=== PATIENT | male | born 1955 | race Two or more races ===

== ENCOUNTER 2020-10-25 00:11 | Emergency (ER) | payer OTHER ==
[~2020-10-25] VITALS: Ht 170.2 cm; Wt 70.8 kg
[2020-10-25 01:23] LABS: Basophils # (auto) 0 10 ^3/uL (0-0.2); Basophils % (auto) 0.7 % (0.0-2.0); Eosinophils # (auto) 0.2 10 ^3/uL (0-0.8); Eosinophils % (auto) 4.1 % (0.0-7.0); Hematocrit 40.9 % (41.0-53.0); Hemoglobin 14.2 g/dL (13.5-17.5); Lymphocytes # (auto) 2.3 10 ^3/uL (0.4-5.4); Lymphocytes % (auto) 41.2 % (10.0-50.0); Mean Corpuscular Hemoglobin 28.6 pg (28.0-32.0); Mean Corpuscular Hgb Conc. 34.6 g/dL (32.0-36.0); Mean Corpuscular Volume 82.7 fL (80.0-100.0); Monocytes # (auto) 0.5 10 ^3/uL (0-1.3); Monocytes % (auto) 9.5 % (0.0-12.0); Neutrophils # (auto) 2.5 10 ^3/uL (1.6-8.6); Neutrophils % (auto) 44.5 % (37.0-80.0); Nucleated Red Blood Cells % 0.5 %; Platelet Count (auto) 178 10^3/uL (140-450); Red Blood Cells 4.95 10^6/uL (4.5-5.90); Red Cell Distribution Width 12.8 % (11.8-14.3); White Blood Cell 5.6 10^3/uL (4.4-10.8)
[2020-10-25 01:40] LABS: Albumin 3.6 g/dL (3.4-5.0); Anion Gap 10 (5-15); BUN/Creatinine Ratio 19.1; Blood Urea Nitrogen 17 mg/dL (7-18); Calcium 8.2 mg/dL (8.5-10.1); Carbon Dioxide 24 mmol/L (21-32); Chloride 107 mmol/L (98-107); GFR African American 111 mL/min; GFR Non-African American 92 mL/min; Glucose 124 mg/dL (74-106); Sodium 141 mmol/L (136-145)
[2020-10-25 01:44] LABS: Alanine Aminotransferase 26 U/L (16-61); Alkaline Phosphatase 105 U/L (45-117); Aspartate Aminotransferase 20 U/L (15-37); Bilirubin, Total 0.4 mg/dL (0.2-1.0); Total Protein 7.4 g/dL (6.4-8.2)
[2020-10-25 01:49] LABS: Potassium 2.8 mmol/L (3.5-5.1)
[2020-10-25] MEDS ORDERED: POTASSIUM CHL 20 Meq TABLET PO ONE (03:00)
[2020-10-25] MEDS: POTASSIUM CHL 20MEQ/100ML 100 ML IV SCH ×2 (03:56→06:00)
[2020-10-25] MEDS ORDERED: MECLIZINE HCL 25 MG TAB PO ONE (04:00)
[2020-10-25 05:33] VITALS: BP 93/61
== END 2020-10-25 08:20 | disposition home or self-care (01) ==
LOC: ER 00:15
DX: R42 Dizziness and giddiness (principal); E87.6 Hypokalemia; F17.210 Nicotine dependence, cigarettes, uncomplicated; R51.9 Headache, unspecified
CPT/HCPCS: 36415; 71045; 80053; 84484; 85025; 93005; 96365; 96366; 99285; J3480; J7030; J8597

== ENCOUNTER 2021-05-13 23:07 | Emergency (ER) | payer OTHER ==
[~2021-05-13] VITALS: Ht 170.2 cm; Wt 70.3 kg
[2021-05-14 00:03] LABS: Basophils # (auto) 0.1 10 ^3/uL (0-0.2); Basophils % (auto) 0.6 % (0.0-2.0); Eosinophils # (auto) 0.2 10 ^3/uL (0-0.8); Hematocrit 42.4 % (41.0-53.0); Hemoglobin 14.5 g/dL (13.5-17.5); Lymphocytes # (auto) 2.5 10 ^3/uL (0.4-5.4); Lymphocytes % (auto) 27.7 % (10.0-50.0); Mean Corpuscular Hemoglobin 28.1 pg (28.0-32.0); Mean Corpuscular Hgb Conc. 34.3 g/dL (32.0-36.0); Mean Corpuscular Volume 81.9 fL (80.0-100.0); Monocytes # (auto) 0.8 10 ^3/uL (0-1.3); Neutrophils # (auto) 5.4 10 ^3/uL (1.6-8.6); Neutrophils % (auto) 60.7 % (37.0-80.0); Nucleated Red Blood Cells % 0.1 %; Red Blood Cells 5.17 10^6/uL (4.5-5.90); Red Cell Distribution Width 12.6 % (11.8-14.3)
[2021-05-14 00:25] LABS: Albumin 3.7 g/dL (3.4-5.0); BUN/Creatinine Ratio 18.1; Calcium 8.5 mg/dL (8.5-10.1); Potassium 3.3 mmol/L (3.5-5.1)
[2021-05-14 00:30] LABS: Bilirubin, Total 0.5 mg/dL (0.2-1.0); Total Protein 7.9 g/dL (6.4-8.2)
[2021-05-14] MEDS ORDERED: SODIUM CHLORIDE 0.9% 1,000 ML IV ONE (02:00)
[2021-05-14] MEDS ORDERED: MECLIZINE HCL 25 MG TAB PO ONE (02:00)
[2021-05-14] MEDS ORDERED: ONDANSETRON HCL 4 MG/2 ML VIAL IV ONE (02:45)
[2021-05-14 06:25] VITALS: BP 145/67
== END 2021-05-14 06:27 | disposition home or self-care (01) ==
LOC: ER 23:07
DX: R42 Dizziness and giddiness (principal); H92.03 Otalgia, bilateral
CPT/HCPCS: 36415; 70450; 71045; 80053; 84484; 85025; 93005; 96361; 96374; 99285; J2405; J7030; J8597

== ENCOUNTER 2022-04-15 10:05 | Emergency (ER) | payer MEDICARE, OTHER ==
[~2022-04-15] VITALS: Ht 165.1 cm; Wt 66.8 kg
[2022-04-15] MEDS ORDERED: SODIUM CHLORIDE 0.9% 500 ML IV ONE (10:15)
[2022-04-15 11:08] LABS: Albumin 3.6 g/dL (3.4-5.0); Calcium 7.7 mg/dL (8.5-10.1)
[2022-04-15 11:12] LABS: Basophils # (auto) 0 10 ^3/uL (0-0.2); Basophils % (auto) 0.8 % (0.0-2.0); Eosinophils # (auto) 0.1 10 ^3/uL (0-0.8); Eosinophils % (auto) 2.3 % (0.0-7.0); Hematocrit 38.5 % (41.0-53.0); Hemoglobin 13.3 g/dL (13.5-17.5); Lymphocytes # (auto) 0.7 10 ^3/uL (0.4-5.4); Lymphocytes % (auto) 12.1 % (10.0-50.0); Mean Corpuscular Hemoglobin 28.2 pg (28.0-32.0); Mean Corpuscular Hgb Conc. 34.6 g/dL (32.0-36.0); Mean Corpuscular Volume 81.5 fL (80.0-100.0); Monocytes # (auto) 0.5 10 ^3/uL (0-1.3); Monocytes % (auto) 8.4 % (0.0-12.0); Neutrophils # (auto) 4.5 10 ^3/uL (1.6-8.6); Neutrophils % (auto) 76.4 % (37.0-80.0); Nucleated Red Blood Cells % 0.1 %; Red Blood Cells 4.73 10^6/uL (4.5-5.90); Red Cell Distribution Width 13.1 % (11.8-14.3); White Blood Cell 5.9 10^3/uL (4.4-10.8)
[2022-04-15 11:13] LABS: BUN/Creatinine Ratio 17.6; Bilirubin, Total 0.5 mg/dL (0.2-1.0); Total Protein 6.5 g/dL (6.4-8.2)
[2022-04-15 11:29] LABS: Urine Bacteria NONE SEEN /hpf (None Seen); Urine Blood Negative /uL (Negative); Urine Specific Gravity 1.007 (1.001-1.035); Urine WBC <1 /hpf (0 - 3)
[2022-04-15 11:56] LABS: Alcohol, Urine < 3.0 mg/dL (0-10); Amphetamine Screen, Urine NEGATIVE (NEGATIVE); Barbiturate Scree,Urine NEGATIVE (NEGATIVE); Benzodiazephine Screen, Urine NEGATIVE (NEGATIVE); Cannabinoid Screen, Urine NEGATIVE (NEGATIVE); Cocaine Screen, Urine NEGATIVE (NEGATIVE); Opiate Scree,Urine NEGATIVE (NEGATIVE); Phencyclidine Screen, Urine NEGATIVE (NEGATIVE)
[2022-04-15 13:27] VITALS: BP 125/90
== END 2022-04-15 13:31 | disposition home or self-care (01) ==
LOC: ER 10:05 → EDBD 10:05 → ER 13:31
DX: R42 Dizziness and giddiness (principal); T50.905A Adverse effect of unspecified drugs, medicaments and biological substances, initial encounter; Y92.89 Other specified places as the place of occurrence of the external cause
CPT/HCPCS: 36415; 71045; 80053; 80307; 81001; 84484; 85025; 93005; 99285; J7030; 96360

== ENCOUNTER 2023-03-13 08:29 | Emergency (ER) | payer MEDICARE, MEDICAID ==
[~2023-03-13] VITALS: Ht 167.6 cm; Wt 66.2 kg
[2023-03-13 09:06] LABS: Urine Bacteria NONE SEEN /hpf (None Seen); Urine Blood Negative /uL (Negative); Urine Clarity Clear (Clear); Urine Color Yellow (Yellow); Urine Mucus FEW (None Seen); Urine Protein, UAD Negative (Negative); Urine Specific Gravity 1.018 (1.001-1.035); Urine Urobilinogen Normal (Negative); Urine WBC 1 /hpf (0 - 3)
[2023-03-13 09:09] VITALS: BP 156/103; RESP 20; TEMP 97.8; O2SAT 98
[2023-03-13 09:23] LABS: Alanine Aminotransferase 16 U/L (7-40); Albumin 5.1 g/dL (3.2-4.8); Alkaline Phosphatase 88 U/L (46-116); Anion Gap 3 (5-15); Aspartate Aminotransferase 15 U/L (13-40); BUN/Creatinine Ratio 11.3 (10.0-20.0); Bilirubin, Total 0.9 mg/dL (0.2-1.0); Blood Urea Nitrogen 11 mg/dL (9-23); Calcium 9.5 mg/dL (8.7-10.4); Carbon Dioxide 32 mmol/L (20-30); Chloride 105 mmol/L (98-107); Glucose 98 mg/dL (74-106); Potassium 3.7 mmol/L (3.5-5.1); Sodium 140 mmol/L (136-145); Total Protein 7.8 g/dL (5.7-8.2)
[2023-03-13 09:25] LABS: Basophils # (auto) 0.1 10 ^3/uL (0-0.2); Eosinophils # (auto) 0.1 10 ^3/uL (0-0.8); Eosinophils % (auto) 2.4 % (0.0-7.0); Hematocrit 43.4 % (41.0-53.0); Hemoglobin 14.9 g/dL (13.5-17.5); Lymphocytes # (auto) 1.3 10 ^3/uL (0.4-5.4); Lymphocytes % (auto) 21.2 % (10.0-50.0); Mean Corpuscular Hemoglobin 28.5 pg (28.0-32.0); Mean Corpuscular Hgb Conc. 34.4 g/dL (32.0-36.0); Monocytes # (auto) 0.5 10 ^3/uL (0-1.3); Monocytes % (auto) 8.7 % (0.0-12.0); Neutrophils # (auto) 3.9 10 ^3/uL (1.6-8.6); Neutrophils % (auto) 66.7 % (37.0-80.0); Nucleated Red Blood Cells % 0.5 %; Red Blood Cells 5.22 10^6/uL (4.5-5.90); Red Cell Distribution Width 13.1 % (11.8-14.3); White Blood Cell 5.9 10^3/uL (4.4-10.8)
[2023-03-13] MEDS ORDERED: KETOROLAC TROMETH 60MG/2ML VIAL IM ONE (09:30)
[2023-03-13 10:37] VITALS: PULSE 92
[2023-03-13] MEDS ORDERED: MELO7.5T7 PO (11:24)
[2023-03-13] MEDS ORDERED: MECL1TAB42 PO (11:24)
== END 2023-03-13 11:36 | disposition home or self-care (01) ==
LOC: ER 08:29
DX: M50.30 Other cervical disc degeneration, unspecified cervical region (principal); R42 Dizziness and giddiness
CPT/HCPCS: 36415; 70450; 71045; 72040; 80053; 81001; 84484; 85025; 93005; 96372; 99285; J1885

== ENCOUNTER 2023-03-26 12:22 | Emergency (ER) | payer MEDICARE, MEDICAID ==
[~2023-03-26] VITALS: Ht 195.6 cm; Wt 64.5 kg
[~2023-03-26 12:22] MED LIST: MECL1TAB42 PO; MELO7.5T7 PO
[2023-03-26 14:56] VITALS: BP 140/94; PULSE 77; RESP 16; TEMP 98.3; O2SAT 98
[2023-03-26] MEDS ORDERED: HYDROcodone-ACET 5/325MG TAB PO ONE (15:15)
[2023-03-26] MEDS ORDERED: ACET-1080 PO (15:20)
[2023-03-26] MEDS ORDERED: PRED20TA2 PO (15:20)
== END 2023-03-26 15:27 | disposition home or self-care (01) ==
LOC: ER 12:22
DX: M50.30 Other cervical disc degeneration, unspecified cervical region (principal); Z79.899 Other long term (current) drug therapy
CPT/HCPCS: 93005

== ENCOUNTER 2024-01-29 21:19 | Inpatient (IN) | payer MEDICARE, MEDICAID ==
[~2024-01-29] VITALS: Ht 170.2 cm; Wt 65.2 kg
[~2024-01-29 21:19] MED LIST changes: +ACET-1080 PO; +PRED20TA2 PO
[2024-01-29 22:40] LABS: Basophils # (auto) 0.1 10 ^3/uL (0-0.2); Basophils % (auto) 0.5 % (0.0-2.0); Eosinophils # (auto) 0.1 10 ^3/uL (0-0.8); Eosinophils % (auto) 1.1 % (0.0-7.0); Hematocrit 42.7 % (41.0-53.0); Hemoglobin 14.8 g/dL (13.5-17.5); Lymphocytes # (auto) 1.2 10 ^3/uL (0.4-5.4); Lymphocytes % (auto) 10.2 % (10.0-50.0); Mean Corpuscular Hemoglobin 28.5 pg (28.0-32.0); Mean Corpuscular Hgb Conc. 34.7 g/dL (32.0-36.0); Monocytes # (auto) 0.8 10 ^3/uL (0-1.3); Monocytes % (auto) 7.1 % (0.0-12.0); Neutrophils # (auto) 9.5 10 ^3/uL (1.6-8.6); Neutrophils % (auto) 81.1 % (37.0-80.0); Nucleated Red Blood Cells % 0.1 %; Red Blood Cells 5.21 10^6/uL (4.5-5.90); Red Cell Distribution Width 13.2 % (11.8-14.3); White Blood Cell 11.7 10^3/uL (4.4-10.8)
[2024-01-29] MEDS: SODIUM CHLORIDE 0.9% 1,000 ML IV ONE (22:52)
[2024-01-29] MEDS: ONDANSETRON HCL 4 MG/2 ML VIAL IV ONE (22:52)
[2024-01-29 22:57] LABS: Alanine Aminotransferase 21 U/L (7-40); Albumin 4.6 g/dL (3.2-4.8); Alkaline Phosphatase 110 U/L (46-116); Anion Gap 3 (5-15); Aspartate Aminotransferase 17 U/L (13-40); BUN/Creatinine Ratio 8.7 (10.0-20.0); Blood Urea Nitrogen 9 mg/dL (9-23); Calcium 9.9 mg/dL (8.7-10.4); Carbon Dioxide 32 mmol/L (20-30); Chloride 100 mmol/L (98-107); Glucose 132 mg/dL (74-106); Potassium 4.5 mmol/L (3.5-5.1); Sodium 135 mmol/L (136-145)
[2024-01-29 22:58] LABS: Bilirubin, Total 0.7 mg/dL (0.2-1.0); Total Protein 8.1 g/dL (5.7-8.2)
[2024-01-29 23:44] VITALS: PULSE 98; RESP 18; O2SAT 98
[2024-01-30 00:03] LABS: Urine Bacteria None Seen /hpf (None Seen)
[2024-01-30 00:25] LABS: Urine Amorphous Crystal FEW /hpf (None Seen); Urine Blood Negative /uL (Negative); Urine Clarity Turbid (Clear); Urine Color Light-Yellow (Yellow); Urine Protein, UAD Negative (Negative); Urine Specific Gravity 1.011 (1.001-1.035); Urine Urobilinogen Normal (Negative); Urine WBC 5 /hpf (0 - 3); Urine pH 7.5 (5.0-9.0)
[2024-01-30] MEDS: IOHEXOL 350 MG/ML 100ML IJ ONE (00:57)
[2024-01-30] MEDS: SODIUM CHLORIDE 0.9% 1,000 ML IV SCH (02:15)
[2024-01-30] MEDS ORDERED: ONDANSETRON HCL 4 MG/2 ML VIAL IV PRN (02:15)
[2024-01-30] MEDS ORDERED: ACETAMINOPHEN 325 MG TAB PO PRN (02:15)
[2024-01-30] MEDS ORDERED: DOCUSATE SOD 100 MG CAP PO PRN (02:15)
[2024-01-30 02:49] VITALS: PULSE 73; RESP 14; O2SAT 98
[2024-01-30] MEDS: HYDROcodone-ACET 5/325MG TAB PO PRN (04:00)
[2024-01-30 04:10] LABS: Basophils # (auto) 0.1 10 ^3/uL (0-0.2); Basophils % (auto) 0.6 % (0.0-2.0); Eosinophils # (auto) 0.1 10 ^3/uL (0-0.8); Eosinophils % (auto) 1.1 % (0.0-7.0); Hematocrit 42.3 % (41.0-53.0); Hemoglobin 14.5 g/dL (13.5-17.5); Lymphocytes # (auto) 1.1 10 ^3/uL (0.4-5.4); Lymphocytes % (auto) 10.5 % (10.0-50.0); Mean Corpuscular Hemoglobin 28.3 pg (28.0-32.0); Mean Corpuscular Hgb Conc. 34.3 g/dL (32.0-36.0); Mean Corpuscular Volume 82.5 fL (80.0-100.0); Monocytes # (auto) 0.8 10 ^3/uL (0-1.3); Monocytes % (auto) 8.1 % (0.0-12.0); Neutrophils % (auto) 79.7 % (37.0-80.0); Nucleated Red Blood Cells % 0.2 %; Red Blood Cells 5.12 10^6/uL (4.5-5.90); Red Cell Distribution Width 12.9 % (11.8-14.3)
[2024-01-30 04:33] LABS: Alanine Aminotransferase 20 U/L (7-40); Albumin 4.5 g/dL (3.2-4.8); Alkaline Phosphatase 105 U/L (46-116); Anion Gap 6 (5-15); Aspartate Aminotransferase 15 U/L (13-40); BUN/Creatinine Ratio 9.1 (10.0-20.0); Bilirubin, Total 0.7 mg/dL (0.2-1.0); Blood Urea Nitrogen 9 mg/dL (9-23); Calcium 9.5 mg/dL (8.7-10.4); Carbon Dioxide 31 mmol/L (20-30); Chloride 101 mmol/L (98-107); Glucose 116 mg/dL (74-106); Potassium 4.3 mmol/L (3.5-5.1); Sodium 138 mmol/L (136-145); Total Protein 7.8 g/dL (5.7-8.2)
[2024-01-30] MEDS ORDERED: MORPHINE SULFATE INJ 2 MG/ml SYRG IV PRN (05:45)
[2024-01-30] MEDS ORDERED: NITROGLYCERIN 0.4 MG SL TAB SL PRN (05:45)
[2024-01-30 09:43] VITALS: PULSE 64; RESP 18; O2SAT 98
[2024-01-30 09:52] VITALS: BP 134/89; PULSE 64; RESP 18; TEMP 97.9; O2SAT 98
[2024-01-30] MEDS ORDERED: HYDR-4798 PO (10:06)
[2024-01-30 13:00] VITALS: BP 138/86; PULSE 66; RESP 18; TEMP 98; O2SAT 98
[2024-01-30 17:00] VITALS: BP 127/84; PULSE 63; RESP 20; TEMP 97.6; O2SAT 99
[2024-01-30] MEDS: MECLIZINE HCL 25 MG TAB PO PRN (18:22)
[2024-01-30 21:00] VITALS: BP 114/82; PULSE 62; RESP 16; TEMP 97.4; O2SAT 97
[2024-01-31 01:00] VITALS: BP 114/48; PULSE 64; RESP 16; TEMP 97.6; O2SAT 98
[2024-01-31 05:00] VITALS: BP 113/77; PULSE 64; RESP 16; TEMP 97.7; O2SAT 98
[2024-01-31 07:01] LABS: Basophils # (auto) 0.1 10 ^3/uL (0-0.2); Basophils % (auto) 1.1 % (0.0-2.0); Eosinophils # (auto) 0.2 10 ^3/uL (0-0.8); Eosinophils % (auto) 3.3 % (0.0-7.0); Hematocrit 39.7 % (41.0-53.0); Hemoglobin 13.9 g/dL (13.5-17.5); Lymphocytes # (auto) 1.3 10 ^3/uL (0.4-5.4); Lymphocytes % (auto) 19.1 % (10.0-50.0); Mean Corpuscular Hemoglobin 28.6 pg (28.0-32.0); Mean Corpuscular Hgb Conc. 34.9 g/dL (32.0-36.0); Mean Corpuscular Volume 82.1 fL (80.0-100.0); Monocytes # (auto) 0.7 10 ^3/uL (0-1.3); Monocytes % (auto) 9.5 % (0.0-12.0); Neutrophils # (auto) 4.7 10 ^3/uL (1.6-8.6); Nucleated Red Blood Cells % 0.4 %; Red Blood Cells 4.84 10^6/uL (4.5-5.90); Red Cell Distribution Width 12.8 % (11.8-14.3)
[2024-01-31 07:21] LABS: Alanine Aminotransferase 21 U/L (7-40); Alkaline Phosphatase 96 U/L (46-116); Anion Gap 4 (5-15); Aspartate Aminotransferase 20 U/L (13-40); BUN/Creatinine Ratio 19.8 (10.0-20.0); Blood Urea Nitrogen 18 mg/dL (9-23); Calcium 9.4 mg/dL (8.7-10.4); Carbon Dioxide 29 mmol/L (20-30); Chloride 105 mmol/L (98-107); Glucose 88 mg/dL (74-106); Potassium 4.2 mmol/L (3.5-5.1); Sodium 138 mmol/L (136-145)
[2024-01-31 07:22] LABS: Bilirubin, Total 0.6 mg/dL (0.2-1.0); Total Protein 6.4 g/dL (5.7-8.2)
[2024-01-31 09:00] VITALS: BP 120/83; PULSE 78; RESP 20; TEMP 97.7; O2SAT 98
[2024-01-31 09:43] VITALS: PULSE 78; RESP 20; O2SAT 98
[2024-01-31] MEDS ORDERED: MECL12.586 PO (11:02)
[2024-01-31 12:54] VITALS: BP 120/83; PULSE 78; RESP 20; TEMP 97.7; O2SAT 98
[2024-01-31 13:00] VITALS: BP 141/90; PULSE 76; RESP 20; TEMP 97.7; O2SAT 96
== END 2024-01-31 16:14 | disposition home or self-care (01) | DRG 641 ==
LOC: ER 21:19 → TELE 01-30 05:45 → TELE-WESTW 01-30 09:41 → WEST WING 01-31 00:14
PROVIDERS: ADMIT Nurse Practitioner Family; ATTEND Nurse Practitioner Family
DX: E86.0 Dehydration (principal); I16.0 Hypertensive urgency; Z79.899 Other long term (current) drug therapy
CPT/HCPCS: 36415; 70450; 70498; 71046; 80053; 81001; 84484; 85025; G0378; J2405

== ENCOUNTER 2024-08-03 01:15 | Emergency (ER) | payer MEDICARE, MEDICAID ==
[~2024-08-03] VITALS: Ht 170.2 cm; Wt 72.4 kg
[~2024-08-03 01:15] MED LIST changes: -ACET-1080 PO; +HYDR-4798 PO; +MECL12.586 PO; -MECL1TAB42 PO; -MELO7.5T7 PO; -PRED20TA2 PO
[2024-08-03] MEDS ORDERED: HYDR50CA2 PO (01:53)
--- NOTE | 2024-08-03 01:53 | ED.PDOC ---
Psychiatric HPI Comments 68-YEAR-OLD MALE PRESENTS TO ER WITH COMPLAINTS OF ANXIETY X2 DAYS. PATIENT'S PAST MEDICAL HISTORY SIGNIFICANT FOR ANXIETY REPORTS THAT HE HAS BEEN FEELING ANXIOUS WITH DIFFICULTY SLEEPING FOR THE PAST TWO NIGHTS. DENIES ANY PAIN. DENIES USE OF MEDICATIONS FOR CURRENT SYMPTOMS. PATIENT PRESENTS TO ER AMBULATO RY ON ARRIVAL, ALERT AND ORIENTED X 4, WITH STEADY GAIT, IN NO DISTRESS. DENIES SHORTNESS OF BREATH, CHEST PAIN, NAUSEA/VOMITING, NUMBNESS/TINGLING, FEVER, HEADACHE OR ANY FURTHER SYMPTOMS/COMPLAINTS Chief Complaint: Anxiety Time Seen by MD: 01:38 Primary Care Provider: UNKNOWN Reviewed Notes: Nurses Notes, Medications, Allergies Information Source: Patient Mode of Arrival: Ambulatory Past Medical History PAST MEDICAL HISTORY: Anxiety Surgical History: Denies all surgeries Family History Family History: Unknown Social History Smoker: Non-Smoker Alcohol: Rarely Drugs: Denies Drug Use Lives In: Home Constitutional: denies: chills, diaphoresis, fatigue, fever, malaise, sweats, weakness, others EENTM: denies: blurred vision, double vision, ear bleeding, ear discharge, ear drainage, ear pain, ear ringing, eye pain, eye redness, hearing loss, mouth pain, mouth swelling, nasal discharge, nose bleeding, nose congestion, nose pain, photophobia, tearing, throat pain, throat swelling, voice changes, others Respiratory: denies: cough, hemoptysis, orthopnea, SOB at rest, shortness of breath, SOB with excertion, stridor, wheezing, others Cardiovascular: denies: chest pain, dizzy spells, diaphoresis, Dyspnea on exertion, edema, irregular heart beat, left arm pain, lightheadedness, palpitations, PND, syncope, others Gastrointestinal: denies: abdomen distended, abdominal pain, blood streaked bowels, constipated, diarrhea, dysphagia, difficulty swallowing, hematemesis, melena, nausea, poor appetite, poor fluid intake, rectal bleeding, rectal pain, vomiting, others Genitourinary: denies: burning, dysuria, flank pain, frequency, hematuria, incontinence, penile discharge, penile sore, pain, testicle pain, testicle swelling, urgency, others Neurological: denies: dizziness, fainting, headache, left sided numbness, left sided weakness, numbness, paresthesia, pre-existing deficit, right sided numbness, right sided weakness, seizure, speech problems, tingling, tremors, weakness, others Musculoskeletal: denies: back pain, gout, joint pain, joint swelling, muscle pain, muscle stiffness, neck pain, others Integumetry: denies: bruises, change in color, change in hair/nails, dryness, laceration, lesions, lumps, rash, wounds, others Hematologic/Lymphatic: denies: anemia, blood clots, easy bleeding, easy bruising, swollen glands, others Endocrine: denies: excessive hunger, excessive sweating, excessive thirst, excessive urination, flushing, intolerance to cold, intolerance to heat, unexplained weight gain, unexplained weight loss, others Psychiatric: reports: others ( STATED IN HPI) Physical Exam General Appearance: No Apparent Distress HEENT: Normal ENT Inspection, PERRL/EOMI, Pharynx Normal, TMs Normal Neck: Full Range of Motion, Non-Tender, Normal Respiratory: Chest Non-Tender, Lungs Clear, No Accessory Muscle Use, No Respiratory Distress, Normal Breath Sounds Cardiovascular: No Murmur, No Gallop, Regular Rate/Rhythm Breast Exam: Deferred Gastrointestinal: NOT DONE Genitalia: Deferred Pelvic: Deferred Rectal: Deferred Extremities: Normal capillary refill, Normal range of motion Neurologic: Alert, 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 Was a procedure done?: No Sedation Sedation?: No Psych Differential Dx Intoxication Differential Dx: Hallucinations, Dehydration, Electrolyte Imbalance X-Ray, Labs, Meds, VS Vital Signs Date Time Temp Pulse Resp B/P (MAP) Pulse Ox O2 Delivery O2 Flow Rate FiO2 08/03/24 01:18 98.1 84 18 160/99 (119) 96 [place] 50 MG P.O. ORDERED PATIENT HAD IMPROVEMENT IN SYMPTOMS AND IN NO DISTRESS PRIOR TO DISCHARGE ADVISED TO DRINK PLENTY OF FLUIDS ADVISED TO FOLLOW UP WITH PCP IN 1-2 DAYS PATIENT ALERT AND ORIENTED X4 PRIOR TO DISCHARGE. PATIENT VERBALIZED UNDERSTANDING AND AGREEABLE WITH CURRENT PLAN OF CARE ADVISED TO RETURN TO ER IMMEDIATELY IF SYMPTOMS WORSEN Time of 1ST Reevaluation: 01:34 Reevaluation 1ST: N/A Patient Education/Counseling: Diagnosis, Treatment, Prognosis, Need For Follow Up Family Education/Counseling: No Family Present Departure 1 Departure Time of Disposition: 01:52 Impression: Primary Impression: Anxiety Disposition: HOME / SELF CARE / HOMELESS Condition: Stable e-Prescriptions Hydroxyzine Pamoate (Hydroxyzine Pamoate) 50 Mg Cap 50 MG PO [id number], #16 CAP Prov: CALVIN JOHNSON 08/03/24 Discharged With: Friend Critical Care Note Critical Care Time?: No Stability Stability form required: No Heart Score Heart Score: Heart Score Response (Comments) Value History N/A 0 EKG N/A 0 Age N/A 0 Risk Factors N/A 0 Troponin N/A 0 Total 0 CALVIN JOHNSON Aug 03, 2024 01:53
[2024-08-03] MEDS: hydrOXYzine 25 MG TAB or CAP PO ONE (02:07)
[2024-08-03 02:08] VITALS: BP 160/99; PULSE 84; RESP 18; O2SAT 96
== END 2024-08-03 02:09 | disposition home or self-care (01) ==
LOC: ER 01:15
DX: F41.9 Anxiety disorder, unspecified (principal)